=== PATIENT | male | born 1950 | race Caucasian/White ===

== ENCOUNTER → 2016-10-31 | Outpatient (CLI) | payer MEDICARE, OTHER ==
[~2016-10-31] MED LIST: BACTRIM,SEPT1 TABLET PO; SIMVASTATIN40 MG PO; TAMSULOSIN HCL0.4 MG PO; ZESTORETIC 20-1 EAC1 NG
== END | disposition home or self-care (01) ==
LOC: CDC 08:25
DX: R94.31 Abnormal electrocardiogram [ECG] [EKG] (principal); R97.20 Elevated prostate specific antigen [PSA]
CPT/HCPCS: 93000